=== PATIENT | female | born 1955 | race Native Hawaiian/Other Pacific Islander ===

== ENCOUNTER 2017-01-06 07:58 | Outpatient (CLI) | payer BC | END 2017-01-06 19:08 | disposition home or self-care (01) | LOC: MAMMO 07:58 | DX: Z12.31 Encounter for screening mammogram for malignant neoplasm of breast (principal) ==

== ENCOUNTER 2017-01-27 10:50 | Outpatient (CLI) | payer BC | END 2017-01-27 12:00 | disposition home or self-care (01) | LOC: US 10:50 | DX: N64.59 Other signs and symptoms in breast (principal) ==

== ENCOUNTER 2020-08-06 10:20 | Outpatient (CLI) | payer OTHER, MEDICARE | END 2020-08-06 19:37 | disposition home or self-care (01) | LOC: MAMMO 10:20 | PROVIDERS: ATTEND Specialist | DX: Z12.31 Encounter for screening mammogram for malignant neoplasm of breast (principal) ==

== ENCOUNTER 2021-11-10 08:23 | Outpatient (CLI) | payer OTHER, MEDICARE | END 2021-11-10 19:16 | disposition home or self-care (01) | LOC: MAMMO 08:23 | PROVIDERS: ATTEND Specialist | DX: Z12.31 Encounter for screening mammogram for malignant neoplasm of breast (principal) ==

== ENCOUNTER 2022-11-18 09:49 | Outpatient (CLI) | payer OTHER, MEDICARE | END 2022-11-18 19:12 | disposition home or self-care (01) | LOC: MAMMO 09:49 | PROVIDERS: ATTEND Specialist | DX: Z12.31 Encounter for screening mammogram for malignant neoplasm of breast (principal) ==